=== PATIENT | female | born 1980 | race Caucasian/White ===

== ENCOUNTER 2016-11-23 05:31 | Day surgery (SDC) | payer OTHER ==
[~2016-11-23 05:31] MED LIST: CLINDAMYCIN 900 MG/D5W RTU 50 ML IV PRN; RINGERS SOLUTION,LACTATED 1,000 ML IV PRN
[2016-11-23] MEDS ORDERED: ALBUTEROL SULFATE 0.083% NEB 2.5 MG/3 ML AMPUL NEB ONE ×2 (06:06→06:30)
[2016-11-23] MEDS ORDERED: METHYLERGONOVINE MALEATE INJ/PF 0.2 MG/1 ML AMPULE ONE (06:41)
[2016-11-23] MEDS ORDERED: MINERAL OIL (STERILE) 10 ML VIAL ONE (06:41)
[2016-11-23] MEDS ORDERED: BUPIVACAINE HCL 0.5%-EPI 1:200000 INJ/PF 30 ML VIAL ONE (06:41)
[2016-11-23] MEDS ORDERED: METHYLENE BLUE 50 MG/10 ML AMPULE ONE (06:42)
[2016-11-23] MEDS ORDERED: SCOPOLAMINE HYDROBROMIDE 1.5 MG PATCH.TD72 ONE (06:51)
[2016-11-23] MEDS ORDERED: MIDAZOLAM 2 MG/2 ML INJ ONE (06:51)
[2016-11-23] MEDS ORDERED: HYDROMORPHONE HCL INJ/PF 2 MG/ML AMPULE ONE (06:51)
[2016-11-23] MEDS ORDERED: FENTANYL CITRATE INJ/PF 250 MCG/5 ML AMPULE ONE (06:51)
[2016-11-23] MEDS ORDERED: ACETAMINOPHEN 100 ML IV ONE (06:52)
[2016-11-23] MEDS ORDERED: FAMOTIDINE INJ/PF 20 MG/2 ML SDV IV ONE (06:52)
[2016-11-23] MEDS ORDERED: PROPOFOL INJ 200 MG/20 ML VIAL IV ONE (06:52)
[2016-11-23] MEDS ORDERED: BUPIVACAINE HCL 0.25 % INJ/PF (2.5 MG/1 ML) 30 ML VIAL ONE (07:54)
[2016-11-23] MEDS ORDERED: MEPERIDINE HCL/PF INJ 25 MG/1 ML DISP.SYRIN IV PRN (08:45)
[2016-11-23] MEDS ORDERED: DIPHENHYDRAMINE HCL 50 MG/ML VIAL IV PRN (08:45)
[2016-11-23] MEDS ORDERED: PROMETHAZINE HCL INJ 25 MG/1 ML VIAL IV PRN ×2 (08:45→14:59)
[2016-11-23] MEDS ORDERED: FENTANYL CITRATE INJ/PF 100 MCG/2 ML AMPUL IV PRN ×3 (08:45)
[2016-11-23] MEDS ORDERED: SUCCINYLCHOLINE CHLORIDE INJ 200 MG/10 ML VIAL ONE (10:00)
[2016-11-23] MEDS ORDERED: DEXAMETHASONE SOD PHOSPHATE INJ 4 MG/1 ML VIAL ONE (10:00)
[2016-11-23] MEDS ORDERED: ONDANSETRON HCL INJ/PF 4 MG/2 ML SDV ONE ×2 (10:00→10:12)
[2016-11-23] MEDS ORDERED: LIDOCAINE 2% INJ-PF (20 MG/ML) 10 ML AMPUL ONE (10:00)
[2016-11-23] MEDS ORDERED: VECURONIUM BROMIDE INJ 10 MG VIAL IV ONE ×2 (10:00→10:12)
[2016-11-23] MEDS ORDERED: GLYCOPYRROLATE INJ 0.4 MG/2 ML VIAL ONE (10:00)
[2016-11-23] MEDS ORDERED: NEOSTIGMINE METHYLSULFATE 10 MG/10 ML VIAL ONE (10:00)
--- NOTE | 2016-11-23 10:46 | RADIOLOGY REPORT (SQ) ---
EXAM DESCRIPTION: PYELOGRAM RETROGRADE COMPLETED DATE/TIME: 11/23/2016 8:40 am REASON FOR STUDY: RETROGRADE PYELOGRAM STENT PLCMT RT KIDNEY ASSISTED WITH FLUORO IN OR N13.0 HYDRO NEPHROSIS WITH URETEROPELVIC JUNCTION OBSTRUCTION COMPARISON: None. FLUOROSCOPY TIME: 0.2 minutes 7 digital images saved to PACS. TECHNIQUE: Intra-operative images acquired during right retrograde injection and ureteral stent plac ement NUMBER OF IMAGES: 7 digital images saved to pac's LIMITATIONS: None. FINDINGS: Imaging during right retrograde ureteral injection and right double-J stent placement. Vi sualized segments of the right ureter are normal caliber. There is a right-sided ureteropelvic junct ion obstruction with right hydronephrosis. Final films demonstrate a double-J stent with the proxima l loop over the right upper pole calyx. IMPRESSION: INTRA PROCEDURAL IMAGING ABOVE . COMMENT: Quality ID [id number]: Final reports for procedures using fluoroscopy that document radiation exp osure indices, or exposure time and number of fluorographic images (if radiation exposure indices are not available) Please consult full operative report of the attending physician for description of the procedure. TECHNICAL DOCUMENTATION: JOB ID: [id number] [employer]- All Rights Reserved
[2016-11-23] MEDS ORDERED: CLINDAMYCIN 900 MG/D5W RTU 50 ML IV ONE (13:15)
[2016-11-23] MEDS ORDERED: RINGERS SOLUTION,LACTATED 1,000 ML IV PRN (14:57)
[2016-11-23] MEDS ORDERED: ONDANSETRON HCL INJ/PF 4 MG/2 ML SDV IV PRN (14:57)
[2016-11-23] MEDS ORDERED: FENTANYL CITRATE INJ/PF 100 MCG/2 ML AMPUL ONE (15:28)
[2016-11-23] MEDS ORDERED: HYDROMORPHONE HCL INJ/PF 2 MG/ML AMPULE INJ PRN ×2 (15:36→15:37)
[2016-11-23 18:48] VITALS: BP 106/57
--- NOTE | 2016-11-24 10:25 | OPERATIVE REPORT E ---
Operative Report NAME: MARLON AVILES : 1980 AGE: 36Y DATE OF SURGERY: 11/23/2016 ROOM: OR INDICATION FOR PROCEDURE: The patient is a 36-year-old female with right-sided flank pain and nephrolithiasis and recurrent renal infections. She was found to have a right-sided ureteropelvic junction obstruction. She was counseled on risks, benefits, side effects of a cystoscopy with ureteral stent placement, a right-sided robotic-assisted laparoscopic pyeloplasty, and a stone extraction on the right, and consented to proceed. PREOPERATIVE DIAGNOSES: 1. Right UPJ obstruction. 2. Right renal calculi. POSTOPERATIVE DIAGNOSES: 1. Right UPJ obstruction. 2. Right renal calculi. OPERATION PERFORMED: 1. Cystoscopy with right ureteral stent placement. 2. Robotic-assisted laparoscopic right pyeloplasty. 3. Endoscopic stone extraction, right kidney. SURGEON: NELSY YE D.O. [facility]. SHIRT OPERATOR: CALIXTO ROBISON M.D., [facility]. ANESTHESIA: General. INTRAVENOUS FLUIDS: 2500 mL of Lactated Ringer's. URINE OUTPUT: 400. ESTIMATED BLOOD LOSS: 50. IMPLANTS: A 6-Eritrean x 24 cm ureteral stent in the right ureter. DRAIN: A 16-Eritrean Soto catheter and a BRODY drain. SPECIMEN: 1. Ureteropelvic junction stricture. 2. Renal calculi. COMPLICATIONS: None. FINDINGS: Right ureteropelvic junction obstruction with right renal calculi. DESCRIPTION OF PROCEDURE: The patient was met in the preop holding area. Risks, benefits, and side effects of a cystoscopy with right ureteral stent placement and robotic-assisted, right-sided pyeloplasty and stone extraction were again reviewed with the patient. She consented to proceed. She was brought to the operative theatre and placed on the table in a supine position where general anesthesia was induced. She was then placed in dorsal lithotomy position and sterilely prepped and draped in the usual fashion. A timeout was performed to verify patient, proper position, proper laterality being the right, and the preop antibiotics administered. With all in agreement, we proceeded. A 21-Eritrean rigid cystoscope was placed through the urethra to the level of the bladder where a cystoscopy was performed and a open-ended catheter was inserted into the right ureteral orifice. Retrograde pyelogram was performed that revealed hydronephrosis of the right kidney with transition point at the ureteropelvic junction. We then passed a sensor wire to the level of the renal pelvis and then a 6-Eritrean x 24 cm stent as well. This was passed to the level of the renal pelvis and this wire was slowly removed with a good curl in the stent in the renal pelvis fluoroscopically, and then fully removed with a good curl in the stent in the bladder cystoscopically. Dangling wires were removed. The cystoscope was removed and the 16-Eritrean Soto catheter placed and left to gravity drainage. This concluded this portion of the procedure. She remained intubated for a pyeloplasty. She was then transitioned to a modified decubitus position with the right side up on perales bag. She then had all pressure points meticulously padded and she was secured to the bed. She was then again sterilely prepped and draped in the usual fashion. A second timeout was performed to ensure proper procedure and laterality being the right. With all in agreement, we proceeded. We began by placing a Veress needle in the umbilicus and then the syringe was used to ensure entry into the peritoneal cavity. The insufflation was and opening pressures were 3 cm of water, we then went on high flow insufflation and inflated the peritoneal cavity and placed our trocars, starting with a 12-Eritrean trocar in the umbilicus. We did this with an Optiview port, which easily passed into the abdomen and no evidence of damage from the prior placement of the Veress needle. We then placed our robotic ports, which were 8-Eritrean ports, one approximately 10 cm cephalad in the midline and then another approximately 10 cm towards the ASIS in the right lower quadrant. We then placed a 5 mm liver retractor in the subxiphoid region, an assistance port approximately 10 cm inferior to the camera port in the midline as well. Once all these were placed, our robot was brought onto the field and docked and we began our procedure. We began by reflecting the white line of Toldt. Once this was completed, the colon was reflected medially. Once the colon was reflected medially, the renocolic ligaments were also reflected, allowing the visualization of the dilated renal pelvis. We then were able to identify the ureter distally and isolate it and dissect it cephalad to the remainder of the renal pelvis. There was a large rind with overlying peristalsing vessels feeding the chronically obstructed pelvis. This was meticulously dissected with a combination of blunt dissection and electrocautery. Peristalsing vessels were sequentially clipped and then divided. Once this was completed, the entire pelvis was dissected and the majority of the rind removed as well. We then marked the areas of our incision across the dilated renal pelvis. The robotic scissors were used to incise the anterior portion of the renal pelvis. Once this was completed, we paused our procedure in order to remove the renal calculi, so the flexible cystoscope was introduced through 1 of the robotic ports and with the assistance of a ProGrasp inserted into the renal pelvis, flexible scope and a Zero-Tip nitinol basket were used to retrieve the calculi, which numbered 7 total. They were all removed from the kidney and from the field and sent for pathologic examination. We then continued with the pyeloplasty. We continued with transection of the renal pelvis. Once this was half transected, we spatulated laterally on the ureter and then excised the posterior wall as well. We then continued with the pyeloplasty. We did some further distal dissection of the ureter in order to make a tension-free anastomosis. We used a 4-0 Vicryl suture to run the back wall of the anastomosis. Once this was completed, we did the front wall of the anastomosis as well with a 4-0 Vicryl in a running fashion. Before the front wall was completed, we made sure the stent was inside the renal pelvis. We then had some redundant renal pelvis left that was reapproximated again with a running 4-0 Vicryl suture. Once the anastomosis was completed, we copiously irrigated the wound. There was no evidence of active bleeding. We placed some FloSeal near the anastomosis. A 10-Eritrean round BRODY drain was also left in the right pericolic gutter, coming out of 1 of the right lower quadrant robotic ports. We then surveyed the abdomen with no evidence of bleeding and removed our camera and our instruments, and the ports were removed as well, and the abdomen was desufflated. The fascia of the 12 mm ports were closed with interrupted 0-Vicryl sutures, and then deep dermal stitches of 3-0 Vicryl were placed and the skin closed with 4-0 Monocryl in a running subcuticular fashion. The drain was secured with a 3-0 Vicryl suture and drain sponge placed. The remaining incisions were sealed with Dermabond. The patient tolerated the procedure well. She was awakened and taken to the PACU in good condition. At the conclusion of the case, all instrument, needle, and sponge counts were complete and correct. DICTATING PHYSICIAN: NELSY YE D.O. [id number] PHY#: [id number] ID: [id number] JOB#: [id number] ACCT: [id number] cc:NELSY YE D.O. >
== END 2016-11-23 18:20 ==
LOC: OROUT 05:31 → INOR 05:31 → UNDOADMIN 05:31 → UNDODISIN 18:20 → OROUT 18:20 → EDSTATUS 11-30 07:30
PROVIDERS: ATTEND Surgery
PROC: 0T768DZ Dilation of Right Ureter with Intraluminal Device, Via Natural or Artificial Opening Endoscopic (ICD-10-PCS; 2016-11-23)
PROC: 0TF38ZZ Fragmentation in Right Kidney Pelvis, Via Natural or Artificial Opening Endoscopic (ICD-10-PCS; 2016-11-23)
PROC: 0TQ34ZZ Repair Right Kidney Pelvis, Percutaneous Endoscopic Approach (ICD-10-PCS; principal; 2016-11-23 07:30)
DX: N13.0 Hydronephrosis with ureteropelvic junction obstruction (principal); N20.0 Calculus of kidney; Z88.0 Allergy status to penicillin; Z88.5 Allergy status to narcotic agent; Z79.899 Other long term (current) drug therapy; Z79.51 Long term (current) use of inhaled steroids; J45.909 Unspecified asthma, uncomplicated; D64.9 Anemia, unspecified
CPT/HCPCS: 36415; 74420; 82370; 84703; 862; 86850; 86900; 86901; 88305; 94640; C1758; C1769; C2617; J0131; J0330; J1100; J1170; J2210; J2250; J2405; J2704; J3010; J3490; Q9967; Q9968; S0028